=== PATIENT | male | born 1955 | race Caucasian/White ===

== ENCOUNTER 2019-03-25 12:03 | Outpatient (CLI) | payer MEDICARE, OTHER | END 2019-03-25 23:59 | disposition home or self-care (01) | LOC: CFH 12:03 | PROVIDERS: ATTEND Nurse Practitioner Primary Care | DX: E03.9 Hypothyroidism, unspecified (principal); E55.9 Vitamin D deficiency, unspecified; R97.20 Elevated prostate specific antigen [PSA]; E78.2 Mixed hyperlipidemia; R53.83 Other fatigue; E88.1 Lipodystrophy, not elsewhere classified; Z79.899 Other long term (current) drug therapy | CPT/HCPCS: 76536 ==